=== PATIENT | female | born 1990 | race Caucasian/White ===

== ENCOUNTER 2017-05-04 07:57 | Emergency (ER) | payer OTHER ==
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
[2017-05-04] MEDS ORDERED: DIPH,PERTUS(ACELL)TETVAC-LF 0.5 ML VIAL IM ONE (08:35)
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
[2017-05-04 09:16] VITALS: BP 126/90; PULSE 85; RESP 17; TEMP 98.1
== END 2017-05-04 09:18 | disposition home or self-care (01) ==
LOC: EC 07:57
DX: S02.2XXA Fracture of nasal bones, initial encounter for closed fracture (principal); S00.12XA Contusion of left eyelid and periocular area, initial encounter; F17.200 Nicotine dependence, unspecified, uncomplicated; Z23 Encounter for immunization; Y04.0XXA Assault by unarmed brawl or fight, initial encounter; Y92.009 Unspecified place in unspecified non-institutional (private) residence as the place of occurrence of the external cause
CPT/HCPCS: 70450; 70486; 90471; 90715; 99284

== ENCOUNTER → 2017-07-28 | Outpatient (CLI) | payer OTHER ==
--- NOTE | 2017-07-28 22:40 | XR ---
EXAMINATION TYPE: XR KUB DATE OF EXAM: 07/28/2017 CLINICAL DATA: 26-year-old female with right renal calculus, pain, PHH COMPARISON: None FINDINGS: Supine imaging limited for assessment of free air. Nonobstructive bowel gas pattern. Mild stool burden. There is a 1 cm oval calculus in the right mid abdomen that could either be in the kidney or in the c ollecting system. On the left, there are at least 4 renal calculi, largest measuring 4 mm. No suspicious pelvic calcifications. IMPRESSION: Bilateral nephrolithiasis, more numerous on the left measuring up to 4 mm but largest on the right me asuring 1 cm.
== END | disposition home or self-care (01) ==
LOC: RADXRMAIN 16:04
PROVIDERS: ATTEND Urology
DX: N20.0 Calculus of kidney (principal)
CPT/HCPCS: 74018

== ENCOUNTER 2017-08-01 08:09 | Day surgery (SDC) | payer OTHER ==
[2017-07-29 08:30] VITALS: BMI 28.3
[~2017-08-01 08:09] MED LIST: Pre Op ABX Message 1 EACH MISC MISCELLANE ONE
[2017-08-01 08:26] VITALS: RESP 16; TEMP 97.7
[2017-08-01] MEDS ORDERED: ONDANSETRON 4 MG/2 ML VIAL IVP ONE (08:45)
[2017-08-01] MEDS ORDERED: LIDOCAINE 1% 20 ML VIAL (10MG/ML) FOR IV START INTRADERMA ONE (08:45)
[2017-08-01] MEDS: LACTATED RINGERS 1,000 ML IV SCH ×2 (08:46→09:42)
[2017-08-01] MEDS ORDERED: DEXAMETHASONE SOD PHOS (MDV) 100 MG/10 ML VIAL IV ONE (08:46)
[2017-08-01 08:51] LABS: HCT 41.4 % (34.0-46.0); HGB 13.7 gm/dL (11.4-16.0); MCH 30.4 pg (25.0-35.0); MCHC 33.1 g/dL (31.0-37.0); MCV 91.7 fL (80.0-100.0); Mean Platelet Volume 6.8; Platelet Count 265 k/uL (150-450); RBC 4.52 m/uL (3.80-5.40); RDW 12.3 % (11.5-15.5)
--- NOTE | 2017-08-01 09:07 | XR ---
EXAMINATION TYPE: XR KUB DATE OF EXAM: 08/01/2017 CLINICAL DATA: 26-year-old female preop surgery lithotripsy right-sided kidney stones, PHH COMPARISON: 07/28/2017 FINDINGS: Nonobstructive bowel gas pattern. Left-sided nephrolithiasis redemonstrated, largest calculus measuring 4 mm. Ovoid 9 mm calculus redemonstrated on the right. IMPRESSION: Bilateral nephrolithiasis redemonstrated, largest measuring 9 mm on the right, stable from prior.
[2017-08-01] MEDS ORDERED: PROPOFOL 10 MG/ML 20 ML VIAL IV ONE (09:46)
[2017-08-01] MEDS ORDERED: fentaNYL (PF) 50 MCG/ML 2 ML AMP ONE (09:46)
[2017-08-01] MEDS ORDERED: MIDAZOLAM 2 MG/2 ML VIAL ONE (09:46)
--- NOTE | 2017-08-01 10:26 | P.OP ---
Date of Procedure: 08/01/17 Preoperative Diagnosis: Right Renal Calculus Postoperative Diagnosis: Same Procedure(s) Performed: Right extracorporal shockwave lithotripsy (ESWL) Anesthesia: MAC Surgeon: Sebas Rodriguez Estimated Blood Loss (ml): 0 IV fluids (ml): 650 Pathology: none sent Condition: stable Disposition: PACU Indications for Procedure: I reviewed the patient's CT scan with her and explained that she has a 6 x 8 mm calculus at the right ureteropelvic junction which appears to be the cause of her recent pain. There is also a 1-2 mm nonobstructive calculus in the mid pole of the right kidney, a 4 mm calculus in the mid pole of the left kidney and a 5 mm calculus in the lower pole left kidney. Her calculi in 2012 was composed of calcium oxalate/calcium phosphate. I reviewed treatment options including observation, ESWL or ureteroscopy with lithotripsy. The patient is interested in ESWL and a KUB will be obtained to ensure that the right renal calculus is visible. If it is then ESWL will be performed under intravenous sedation by on 08/01/2017. I reviewed the procedure and risks including postoperative pain, bleeding, kidney injury and inability to completely fragment the calculus. The patient will eventually need a metabolic evaluation as she has had several stones over the last 5 years. Operative Findings: The calculus fragmented well. Description of Procedure: The patient was taken to the operating room and placed on the Dornier Compact Delta II lithotripter in the supine position. The calculus was seen on biplanar fluoroscopy. Once the patient was properly positioned and sedated, lithotripsy was performed. The energy level was gradually increased per protocol, to an energy level of 5. After 200 shocks were administered, a 2 minute pause was instituted per protocol. A total of 2000 shocks were given at a rate of 80 shocks per minute. Fluoroscopy was utilized at a minimum to ensure proper positioning and determine the treatment status. The calculus changed in appearance, consistent with fragmentation. The patient tolerated the procedure well was taken to the recovery room in stable condition. Instructions were given to strain the urine, and the patient will follow-up within one week.
[2017-08-01] MEDS ORDERED: HYDROcodone/APAP 5-325MG 1 EACH TAB PO ONE (10:49)
[2017-08-01 11:02] VITALS: BP 120/85; PULSE 84
== END 2017-08-01 11:39 | disposition home or self-care (01) ==
LOC: ORWHC2ENDO 08:09
PROVIDERS: ATTEND Urology
DX: N20.0 Calculus of kidney (principal); N39.0 Urinary tract infection, site not specified; R31.0 Gross hematuria; J45.909 Unspecified asthma, uncomplicated; Z79.891 Long term (current) use of opiate analgesic; Z79.899 Other long term (current) drug therapy
CPT/HCPCS: 81025; 82565; 85027; 74018; 50590; J2250; J2405; J3010; J1100; J2704

== ENCOUNTER 2017-12-29 15:17 | Inpatient (IN) | payer OTHER ==
[~2017-12-29 15:17] MED LIST changes: -Pre Op ABX Message 1 EACH MISC MISCELLANE ONE; +SODIUM CHLORIDE 0.9% 1,000 ML IV ONE
[2017-12-29] MEDS ORDERED: SODIUM CHLORIDE 0.9% 1,000 ML IV STA ×2 (16:19)
[2017-12-29] MEDS ORDERED: ONDANSETRON 4 MG/2 ML VIAL IVP STA (16:19)
[2017-12-29] MEDS ORDERED: KETOROLAC 30 MG/ML 1 ML VIAL IVP STA (16:19)
[2017-12-29] MEDS ORDERED: ACETAMINOPHEN TAB 500 MG TAB PO STA (16:20)
--- NOTE | 2017-12-29 16:21 | ED ---
Abdominal Pain HPI - General Source: patient, RN notes reviewed, old records reviewed Mode of arrival: ambulatory Limitations: no limitations <Rossana Carrillo - Last Filed: 12/29/17 18:52> <Macy Swift - Last Filed: 12/29/17 19:10> - General Chief Complaint: Abdominal Pain Stated Complaint: kidney stones Time Seen by Provider: 12/29/17 16:14 - History of Present Illness Initial Comments: Patient is a 27-year-old female with history of kidney stones presents emergency department today with onset of left-sided flank pain for the past 2 days. She reports that she's had fever and chills off and on. She is concerned that she may be passing another stone. She had a CAT scan of he wants , so that she had retained stones within the left kidney. Patient states that she's had a few episodes of vomiting. No evidence of diarrhea. She denies any other symptoms related to her fever. Patient states that she has had no recent Motrin or Tylenol. She rides emergency Department with fever 102. (Rossana Carrillo) - Related Data Home Medications Medication Instructions Recorded Confirmed No Known Home Medications 12/29/17 12/29/17 Allergies Allergy/AdvReac Type Severity Reaction Status Date / Time No Known Allergies Allergy Verified 12/29/17 16:25 Review of Systems ROS Other: All systems not noted in ROS Statement are negative. <Rossana Carrillo - Last Filed: 12/29/17 18:52> ROS Other: All systems not noted in ROS Statement are negative. <Macy Swift P - Last Filed: 12/29/17 19:10> ROS Statement: Those systems with pertinent positive or pertinent negative responses have been documented in the HPI. Past Medical History Past Medical History: Asthma Additional Past Medical History / Comment(s): kidney stones History of Any Multi-Drug Resistant Organisms: None Reported Past Surgical History: Cholecystectomy Additional Past Surgical History / Comment(s): lithotripsy Past Anesthesia/Blood Transfusion Reactions: No Reported Reaction Past Psychological History: No Psychological Hx Reported Smoking Status: Former smoker Past Alcohol Use History: None Reported Past Drug Use History: None Reported - Past Family History Father Family Medical History: Pulmonary Embolus <Rossana Carrillo - Last Filed: 12/29/17 18:52> General Exam Limitations: no limitations General appearance: alert, in no apparent distress Head exam: Present: atraumatic, normocephalic, normal inspection Eye exam: Present: normal appearance, PERRL, EOMI. Absent: scleral icterus, conjunctival injection, periorbital swelling ENT exam: Present: normal exam, mucous membranes moist Neck exam: Present: normal inspection. Absent: tenderness, meningismus, lymphadenopathy Respiratory exam: Present: normal lung sounds bilaterally. Absent: respiratory distress, wheezes, rales, rhonchi, stridor Cardiovascular Exam: Present: regular rate, normal rhythm, normal heart sounds. Absent: systolic murmur, diastolic murmur, rubs, gallop, clicks GI/Abdominal exam: Present: soft, tenderness (Left-sided abdominal tenderness. Left CVA tenderness.), normal bowel sounds. Absent: distended, guarding, rebound, rigid Extremities exam: Present: normal inspection, full ROM, normal capillary refill. Absent: tenderness, pedal edema, joint swelling, calf tenderness Back exam: Present: normal inspection Neurological exam: Present: alert, oriented X3, CN II-XII intact Psychiatric exam: Present: normal affect Skin exam: Present: warm, dry, intact, normal color. Absent: rash <Rossana Carrillo - Last Filed: 12/29/17 18:52> <Macy Swift P - Last Filed: 12/29/17 19:10> - General Exam Comments Initial Comments: This is a 27-year-old female. She is alert and oriented. Appears in no acute distress. (Rossana Carrillo) Vital Signs 12/29/17 12/29/17 15:23 17:41 Temperature 100.1 F H 101.6 F H Pulse Rate 122 H 97 Respiratory 18 18 Rate Blood Pressure 126/86 121/66 O2 Sat by Pulse 100 96 Oximetry Medical Decision Making - Lab Data Result diagrams: 12/29/17 16:21 12/29/17 16:21 - Radiology Data Radiology results: report reviewed <Rossana Carrillo - Last Filed: 12/29/17 18:52> - Lab Data Result diagrams: 12/29/17 16:21 12/29/17 16:21 <Macy Swift - Last Filed: 12/29/17 19:10> - Medical Decision Making 27-year-old female presents emergency department today chief complaint of dysuria fevers and chills. She denies emergency part fever 102. Patient was started on IV fluids. Discussed the plan of severe left flank pain. She's had a history of kidney since the past she does see a urologist and warm and she can. Does not remember the name. At this time Patient has evidence of leukocytosis of 14,000. Urinalysis positive for infection and many red blood cells. Concern for septic ureteral stone. Today function was within normal limits. She's had have lithotripsies in the past. Patient was started on 2 g of Rocephin 2 L bolus. Lactic acid was normal. Patient will be admitted at this time for observation to Dr. Dumont on-call urology. May proceed with a ureteral stent to remove a 7 mm stone. (Rossana Carrillo) I saw and evaluated the patient independently have the PA evaluation. Patient with left-sided flank pain, nausea, decreased by mouth intake, fever. Urinalysis reveals a urinary tract infection for which she was treated with Rocephin. Computed tomography scan reveals a 7 mm UVJ stone. I discussed the patient's care with Dr. mueller her who recommends the patient be placed in observation for intervention. (Macy Swift) - Lab Data Lab Results 12/29/17 12/29/17 12/29/17 Range/Units 16:21 16:21 16:21 WBC 14.3 H (3.8-10.6) k/uL RBC 4.76 (3.80-5.40) m/uL Hgb 14.5 (11.4-16.0) gm/dL Hct 42.5 (34.0-46.0) % MCV 89.3 (80.0-100.0) fL MCH 30.5 (25.0-35.0) pg MCHC 34.1 (31.0-37.0) g/dL RDW 12.9 (11.5-15.5) % Plt Count 239 (150-450) k/uL Neutrophils % 83 % Lymphocytes % 8 % Monocytes % 6 % Eosinophils % 1 % Basophils % 0 % Neutrophils # 11.9 H (1.3-7.7) k/uL Lymphocytes # 1.1 (1.0-4.8) k/uL Monocytes # 0.9 (0-1.0) k/uL Eosinophils # 0.2 (0-0.7) k/uL Basophils # 0.0 (0-0.2) k/uL Sodium 138 (137-145) mmol/L Potassium 4.2 (3.5-5.1) mmol/L Chloride 104 (98-107) mmol/L Carbon Dioxide 24 (22-30) mmol/L Anion Gap 10 mmol/L BUN 12 (7-17) mg/dL Creatinine 0.80 (0.52-1.04) mg/dL Est GFR (CKD-EPI)AfAm >90 (>60 ml/min/1.73 sqM) Est GFR (CKD-EPI)NonAf >90 (>60 ml/min/1.73 sqM) Glucose 103 H (74-99) mg/dL Plasma Lactic Acid Chris 0.9 (0.7-2.0) mmol/L Calcium 9.2 (8.4-10.2) mg/dL Total Bilirubin 0.7 (0.2-1.3) mg/dL AST 20 (14-36) U/L ALT 29 (9-52) U/L Alkaline Phosphatase 87 (38-126) U/L Total Protein 7.5 (6.3-8.2) g/dL Albumin 4.5 (3.5-5.0) g/dL Amylase 47 (30-110) U/L Lipase 43 (23-300) U/L Urine Color Urine Appearance (Clear) Urine pH (5.0-8.0) Ur Specific [place] (1.001-1.035) Urine Protein (Negative) Urine Glucose (UA) (Negative) Urine Ketones (Negative) Urine Blood (Negative) Urine Nitrite (Negative) Urine Bilirubin (Negative) Urine Urobilinogen (<2.0) mg/dL Ur Leukocyte Esterase (Negative) Urine RBC (0-5) /hpf Urine WBC (0-5) /hpf Ur Squamous Epith Cells (0-4) /hpf Urine Mucus (None) /hpf Urine HCG, Qual (Not Detectd) 12/29/17 12/29/17 Range/Units 16:21 16:21 WBC (3.8-10.6) k/uL RBC (3.80-5.40) m/uL Hgb (11.4-16.0) gm/dL Hct (34.0-46.0) % MCV (80.0-100.0) fL MCH (25.0-35.0) pg MCHC (31.0-37.0) g/dL RDW (11.5-15.5) % Plt Count (150-450) k/uL Neutrophils % % Lymphocytes % % Monocytes % % Eosinophils % % Basophils % % Neutrophils # (1.3-7.7) k/uL Lymphocytes # (1.0-4.8) k/uL Monocytes # (0-1.0) k/uL Eosinophils # (0-0.7) k/uL Basophils # (0-0.2) k/uL Sodium (137-145) mmol/L Potassium (3.5-5.1) mmol/L Chloride (98-107) mmol/L Carbon Dioxide (22-30) mmol/L Anion Gap mmol/L BUN (7-17) mg/dL Creatinine (0.52-1.04) mg/dL Est GFR (CKD-EPI)AfAm (>60 ml/min/1.73 sqM) Est GFR (CKD-EPI)NonAf (>60 ml/min/1.73 sqM) Glucose (74-99) mg/dL Plasma Lactic Acid Chris (0.7-2.0) mmol/L Calcium (8.4-10.2) mg/dL Total Bilirubin (0.2-1.3) mg/dL AST (14-36) U/L ALT (9-52) U/L Alkaline Phosphatase (38-126) U/L Total Protein (6.3-8.2) g/dL Albumin (3.5-5.0) g/dL Amylase (30-110) U/L Lipase (23-300) U/L Urine Color Yellow Urine Appearance Cloudy H (Clear) Urine pH 6.0 (5.0-8.0) Ur Specific [place] 1.018 (1.001-1.035) Urine Protein 1+ H (Negative) Urine Glucose (UA) Negative (Negative) Urine Ketones 1+ H (Negative) Urine Blood Moderate H (Negative) Urine Nitrite Negative (Negative) Urine Bilirubin Negative (Negative) Urine Urobilinogen 2.0 (<2.0) mg/dL Ur Leukocyte Esterase Small H (Negative) Urine RBC 53 H (0-5) /hpf Urine WBC 16 H (0-5) /hpf Ur Squamous Epith Cells 7 H (0-4) /hpf Urine Mucus Many H (None) /hpf Urine HCG, Qual Not Detected (Not Detectd) - Radiology Data Starting calculus at the left ureteropelvic junction. Multiple renal colliculi. Left-sided hydronephrosis. 7 mm Dose of the proximal left ureter. ( Rossana Carrillo) Disposition Is patient prescribed a controlled substance at d/c from ED?: No When asked, does pt state using other controlled substances?: No If prescribed controlled substance>3 days was MAPS reviewed?: No If opioid is for acute pain is fill amount 7 days or less?: No If Rx opioid, was Start Talking consent form obtained?: No Time of Disposition: 18:52 <Rossana Carrillo - Last Filed: 12/29/17 18:52> <Macy Swift - Last Filed: 12/29/17 19:10> Clinical Impression: Sepsis, Ureteral stone Disposition: HOME SELF-CARE Condition: Good Referrals: Fausto Ann DO [Primary Care Provider] - 1-2 days
[2017-12-29 16:36] LABS: Basophils % (A) 0 %; Eosinophils # (A) 0.2 k/uL (0-0.7); Eosinophils % (A) 1 %; HCT 42.5 % (34.0-46.0); HGB 14.5 gm/dL (11.4-16.0); Lymphocytes # (A) 1.1 k/uL (1.0-4.8); Lymphocytes % (A) 8 %; MCH 30.5 pg (25.0-35.0); MCHC 34.1 g/dL (31.0-37.0); MCV 89.3 fL (80.0-100.0); Mean Platelet Volume 6.8; Monocytes # (A) 0.9 k/uL (0-1.0); Monocytes % (A) 6 %; Neutrophils # (A) 11.9 k/uL (1.3-7.7); Neutrophils % (A) 83 %; Platelet Count 239 k/uL (150-450); RBC 4.76 m/uL (3.80-5.40); RDW 12.9 % (11.5-15.5); WBC 14.3 k/uL (3.8-10.6)
[2017-12-29] MEDS ORDERED: cefTRIAXone IN SWFI 1,000 MG/10 ML SYRINGE IVP STA (16:40)
[2017-12-29] MEDS ORDERED: cefTRIAXone IN SWFI 2,000 MG/20 ML SYRINGE IVP ONE (16:45)
[2017-12-29 16:47] LABS: ALT 29 U/L (9-52); AST 20 U/L (14-36); Albumin 4.5 g/dL (3.5-5.0); Alkaline Phosphatase 87 U/L (38-126); Amylase 47 U/L (30-110); Anion Gap 10 mmol/L; Blood Urea Nitrogen 12 mg/dL (7-17); Calcium 9.2 mg/dL (8.4-10.2); Carbon Dioxide 24 mmol/L (22-30); Chloride 104 mmol/L (98-107); Glucose 103 mg/dL (74-99); Lipase 43 U/L (23-300); Potassium 4.2 mmol/L (3.5-5.1); Sodium 138 mmol/L (137-145); Total Bilirubin 0.7 mg/dL (0.2-1.3); Total Protein 7.5 g/dL (6.3-8.2)
[2017-12-29 17:09] LABS: Appearance,Urine Cloudy (Clear); Bilirubin,Urine Negative (Negative); Blood,Urine Moderate (Negative); Color,Urine Yellow; Glucose,Urine (UA) Negative (Negative); Ketones,Urine 1+ (Negative); Leukocyte Esterase,Urine Small (Negative); Mucus,Urine Many /hpf; Nitrite,Urine Negative (Negative); Protein,Urine 1+ (Negative); RBC,Urine 53 /hpf (0-5); Specific Gravity,Urine 1.018 (1.001-1.035); Squamous Epithelial Cell,Urine 7 /hpf (0-4); WBC,Urine 16 /hpf (0-5)
--- NOTE | 2017-12-29 18:18 | CT ---
EXAMINATION TYPE: CT abdomen pelvis wo con DATE OF EXAM: 12/29/2017 COMPARISON: None HISTORY: lt flank pain/hx bilat kid stones CT DLP: 456.7 mGycm Automated exposure control for dose reduction was used. TECHNIQUE: Helical acquisition of images was performed from the lung bases through the pelvis. FINDINGS: Lung bases are clear. There is no pleural effusion. There is no pericardial effusion. There are clips from cholecystectomy. Liver spleen pancreas appear normal. Bile ducts are not dilated . There is left-sided hydronephrosis and perinephric edema. There is 7 mm calculus in the proximal left ureter. There is a 2 mm right renal calculus. There are several calculi in the left kidney. There is no retroperitoneal adenopathy. There is no intestinal wall thickening. There are no dilated loops. Bladder distends smoothly. There is no pelvic mass. Uterus is anteverted. The bony structures appear intact. Appendix appears normal.. IMPRESSION: OBSTRUCTING CALCULUS AT THE LEFT URETEROPELVIC JUNCTION. MULTIPLE RENAL CALCULI. MODERATE LEFT-SIDED HYDRONEPHROSIS.
[2017-12-29] MEDS ORDERED: IBUPROFEN 600 MG TAB PO STA (18:26)
[2017-12-29] MEDS ORDERED: ONDANSETRON 4 MG/2 ML VIAL IVP PRN (18:53)
[2017-12-29] MEDS ORDERED: MORPHINE SULFATE 4 MG/ML SYRINGE IV PRN (18:53)
[2017-12-29] MEDS ORDERED: NALOXONE 0.4 MG/ML 1 ML VIAL IV PRN (18:53)
[2017-12-29] MEDS ORDERED: ACETAMINOPHEN TAB 325 MG TAB PO PRN (19:36)
--- NOTE | 2017-12-29 20:16 | P.GSHP ---
History of Present Illness H&P Date: 12/29/17 Chief Complaint: Left hydronephrosis and febrile urinary tract infection The patient is a 27-year-old female admitted through the emergency room for treatment of a febrile urinary tract infection complicated by an obstructive calculus in the proximal left ureter. The patient said she first developed left flank pain yesterday evening. The pain was described as a 7 out of 10 and was partially relieved with ibuprofen. Today she developed chills and her pain increased to a 10 out of 10. She came to the emergency room where she was evaluated and noted to have a temperature of 101.4. White blood count was 14, 300. Lactic acid was 0.9. BUN/creatinine were 12/0.8. Urinalysis suggested a urinary tract infection. The patient was given 2 g of ceftriaxone. Noncontrast computed tomography scan of the abdomen and pelvis identified moderate left hydronephrosis secondary to a 6.6 x 4.8 mm calculus in the proximal left ureter. A punctate nonobstructive calculus was noted in the upper pole the right kidney. A punctate calculus was noted in the upper pole the left kidney. 2 nonobstructive calculi measuring less than 3 mm in diameter were noted in the mid and lower pole of the left kidney. The patient has been treated with analgesics and her pain has decreased to a 6 out of 10. She continues to have a fever over 101. The patient has no definite history of urinary tract infection. She does have a history of urolithiasis and underwent placement of a double-J catheter and ESWL treatment of a ureteral calculus approximally 5 years ago. Approximate 6 months ago a calculus in the right ureter was treated with ESWL. At that time she was told she had 2 calculi in the left kidney. She is uncertain as to the composition of the calculi and has never had an evaluation for this. Her family history significant in that her mother is had stones. The patient has had no recent gross hematuria or dysuria. She has noted increased urinary frequency for the last 3 days. She says she usually voids every 2-3 hours during the day and is currently voiding every hour. - Constitutional Constitutional: Reports chills, Reports fever - Cardiovascular Cardiovascular: Denies high blood pressure, Denies palpitations, Denies shortness of breath - Respiratory Respiratory: Reports cough, Denies pain on inspiration, Denies wheezing - Gastrointestinal Gastrointestinal: Reports as per HPI, Denies constipation, Denies heartburn - Genitourinary (Female) Genitourinary: Reports as per HPI Past Medical History Past Medical History: Asthma Additional Past Medical History / Comment(s): kidney stones History of Any Multi-Drug Resistant Organisms: None Reported Past Surgical History: Cholecystectomy Additional Past Surgical History / Comment(s): Extracorporal shock wave lithotripsy twice Past Anesthesia/Blood Transfusion Reactions: No Reported Reaction Past Psychological History: No Psychological Hx Reported Smoking Status: Former smoker Past Alcohol Use History: None Reported Past Drug Use History: None Reported - Past Family History Father Family Medical History: Pulmonary Embolus Medications and Allergies Home Medications Medication Instructions Recorded Confirmed Type No Known Home Medications 12/29/17 12/29/17 History Allergies Allergy/AdvReac Type Severity Reaction Status Date / Time No Known Allergies Allergy Verified 12/29/17 16:25 Surgical - Exam Vital Signs Temp Pulse Resp BP Pulse Ox 100.1 F H 122 H 18 126/86 100 12/29/17 15:23 12/29/17 15:23 12/29/17 15:23 12/29/17 15:23 12/29/17 15:23 - General well developed, well nourished, moderate distress, obese - ENT no hearing loss - Neck no masses, no lymphadectomy - Respiratory normal respiratory effort, clear to auscultation - Cardiovascular Rhythm: regular Heart Sounds: normal: S1, S2 Abnormal Heart Sounds: no systolic murmur, no diastolic murmur - Abdomen Abdomen: tender (left upper quadrant and left flank) Results - Labs 12/29/17 16:21 12/29/17 16:21 Abnormal Lab Results - Last 24 Hours (Table) 12/29/17 12/29/17 12/29/17 Range/Units 16:21 16:21 16:21 WBC 14.3 H (3.8-10.6) k/uL Neutrophils # 11.9 H (1.3-7.7) k/uL Glucose 103 H (74-99) mg/dL Urine Appearance Cloudy H (Clear) Urine Protein 1+ H (Negative) Urine Ketones 1+ H (Negative) Urine Blood Moderate H (Negative) Ur Leukocyte Esterase Small H (Negative) Urine RBC 53 H (0-5) /hpf Urine WBC 16 H (0-5) /hpf Ur Squamous Epith Cells 7 H (0-4) /hpf Urine Mucus Many H (None) /hpf Diabetes panel 12/29/17 Range/Units 16:21 Sodium 138 (137-145) mmol/L Potassium 4.2 (3.5-5.1) mmol/L Chloride 104 (98-107) mmol/L Carbon Dioxide 24 (22-30) mmol/L BUN 12 (7-17) mg/dL Creatinine 0.80 (0.52-1.04) mg/dL Glucose 103 H (74-99) mg/dL Calcium 9.2 (8.4-10.2) mg/dL AST 20 (14-36) U/L ALT 29 (9-52) U/L Alkaline Phosphatase 87 (38-126) U/L Total Protein 7.5 (6.3-8.2) g/dL Albumin 4.5 (3.5-5.0) g/dL Calcium panel 12/29/17 Range/Units 16:21 Calcium 9.2 (8.4-10.2) mg/dL Albumin 4.5 (3.5-5.0) g/dL Pituitary panel 12/29/17 Range/Units 16:21 Sodium 138 (137-145) mmol/L Potassium 4.2 (3.5-5.1) mmol/L Chloride 104 (98-107) mmol/L Carbon Dioxide 24 (22-30) mmol/L BUN 12 (7-17) mg/dL Creatinine 0.80 (0.52-1.04) mg/dL Glucose 103 H (74-99) mg/dL Calcium 9.2 (8.4-10.2) mg/dL Adrenal panel 12/29/17 Range/Units 16:21 Sodium 138 (137-145) mmol/L Potassium 4.2 (3.5-5.1) mmol/L Chloride 104 (98-107) mmol/L Carbon Dioxide 24 (22-30) mmol/L BUN 12 (7-17) mg/dL Creatinine 0.80 (0.52-1.04) mg/dL Glucose 103 H (74-99) mg/dL Calcium 9.2 (8.4-10.2) mg/dL Total Bilirubin 0.7 (0.2-1.3) mg/dL AST 20 (14-36) U/L ALT 29 (9-52) U/L Alkaline Phosphatase 87 (38-126) U/L Total Protein 7.5 (6.3-8.2) g/dL Albumin 4.5 (3.5-5.0) g/dL Assessment and Plan (1) Sepsis Narrative/Plan: The patient appears to have sepsis secondary to urinary tract infection which is complicated by an obstructive calculus in the proximal left ureter. I discussed cystoscopy with placement of a left double-J catheter to decompress the left kidney and allow better antibiotic penetration into the kidney. This will be performed later this evening. The patient is aware that the ureteral calculus will require treatment at some time in the future once the infection has been cleared. Current Visit: Yes Status: Acute Code(s): A41.9 - SEPSIS, UNSPECIFIED ORGANISM SNOMED Code(s): 10648703
[2017-12-29] MEDS ORDERED: ONDANSETRON 4 MG/2 ML VIAL ONE (20:41)
[2017-12-29] MEDS ORDERED: LIDOCAINE 1% INJ 10MG/ML (20 ML MDV) ONE (20:41)
[2017-12-29] MEDS ORDERED: PROPOFOL 10 MG/ML 20 ML VIAL IV ONE (20:41)
[2017-12-29] MEDS ORDERED: MIDAZOLAM 2 MG/2 ML VIAL ONE (20:41)
[2017-12-29] MEDS ORDERED: fentaNYL (PF) 50 MCG/ML 2 ML AMP ONE (20:41)
[2017-12-29] MEDS ORDERED: LACTATED RINGERS 1,000 ML IV ONE (21:04)
--- NOTE | 2017-12-29 21:18 | P.OP ---
Date of Procedure: 12/29/17 Preoperative Diagnosis: Urinary tract infection with sepsis complicated by obstructive proximal left ureteral calculus Postoperative Diagnosis: Urinary tract infection with sepsis complicated by obstructive proximal left ureteral calculus Procedure(s) Performed: Cystoscopy with collection of urine from left renal pelvis and placement of 6- Nigerien by 24 cm left double-J catheter Anesthesia: [facility] Surgeon: Akbar Khan Estimated Blood Loss (ml): 0 Condition: stable Disposition: PACU Indications for Procedure: The patient is a 27-year-old female developed left flank pain and a fever of 101.4 over the last 24 hours. Urinalysis shows evidence of urinary tract infection and a computed tomography scan of the abdomen and pelvis identified a 5 x 7 mm calculus in the proximal left ureter which has caused hydronephrosis. The patient has been admitted for IV antibiotic therapy. Cystoscopy with placement of a left double-J catheter is planned to ensure adequate drainage of the kidney. Description of Procedure: The patient was taken the operating suite where adequate intravenous sedation was given. She was placed in the dorsal lithotomy position with her legs suspended from padded Jose Angel stirrups. The perineum was prepped with Betadine solution and draped in a sterile fashion. The external genitalia and urethral meatus were unremarkable. The 22-Nigerien cystoscope sheath with obturator was passed through the urethra and into the bladder. The bladder was examined using the 30 lens. Both ureteral orifices were of normal location and configuration. The bladder was free of tumor, foreign body and diverticulum. A 0.035 straight Glidewire was advanced through the left ureteral orifice and using fluoroscopy the Glidewire was advanced beyond the calculus in the proximal ureter and into the renal pelvis. An open-ended 6-Nigerien ureteral catheter was advanced over the Glidewire but it was impossible to advance the ureteral catheter beyond the calculus. The 0.035 Glidewire was replaced with a 0.038 Glidewire and using the stiffer Glidewire it was eventually possible to advance the 6-Nigerien open-ended catheter beyond the calculus and into the renal pelvis. 4 mL of cloudy urine was aspirated from the renal pelvis and submitted for culture. The open-ended ureteral catheter was removed leaving the Glidewire in place. A 6-Nigerien by 24 cm double-J catheter was then advanced over the Glidewire and positioned so that the proximal end coiled in the region of the renal pelvis and the distal and coiled in the bladder. The bladder was drained and the cystoscope was withdrawn. The patient tolerated procedure well and left the operative room awake and in satisfactory condition. The patient will be treated with antibiotics and elective treatment of the calculus will be set up in several weeks.
[2017-12-30] MEDS ORDERED: KETOROLAC 30 MG/ML 1 ML VIAL ONE (00:10)
--- NOTE | 2017-12-30 07:17 | FL ---
EXAMINATION TYPE: FL guidance operating room DATE OF EXAM: 12/29/2017 CLINICAL HISTORY: Obstructing left ureter calculus TECHNIQUE: Fluoroscopy. COMPARISON: CT abdomen and pelvis earlier today. FINDINGS: Fluoroscopic guidance was provided during retrograde cystogram with left ureter stent inse rtion procedure performed by Dr. Khan. A total of 26 seconds of fluoroscopic time was utilized duri ng the procedure and one spot intraoperative fluoroscopic image is acquired. Single image acquired sh ows proximal portion of ureter stone into collecting system. IMPRESSION: As Above.
[2017-12-30] MEDS: SODIUM CHLORIDE 0.9% 1,000 ML IV SCH ×3 (07:29→13:05)
[2017-12-30] MEDS: PANTOPRAZOLE 40 MG/10 ML VIAL IV SCH (07:53)
[2017-12-30] MEDS: KETOROLAC 30 MG/ML 1 ML VIAL IVP PRN ×3 (07:58→20:00)
--- NOTE | 2017-12-30 16:58 | P.PN ---
Progress Note - Text Progress Note Date: 12/30/17 The patient has been afebrile and says that her left flank pain is greatly diminished following placement of the double-J catheter. Her appetite is improved. She has also noted reduced urinary frequency and urgency. She will be continued on her current antibiotics pending results of her urine culture.
[2017-12-30] MEDS: cefTRIAXone IN SWFI 1,000 MG/10 ML SYRINGE IVP SCH (17:48)
[2017-12-31] MEDS: SODIUM CHLORIDE 0.9% 1,000 ML IV SCH ×2 (00:32→03:39)
[2017-12-31] MEDS: KETOROLAC 30 MG/ML 1 ML VIAL IVP PRN (03:04)
[2017-12-31 07:00] VITALS: BP 108/69; PULSE 76; RESP 16; TEMP 98.2
[2017-12-31] MEDS: cefTRIAXone IN SWFI 1,000 MG/10 ML SYRINGE IVP SCH (07:50)
[2017-12-31] MEDS: PANTOPRAZOLE 40 MG/10 ML VIAL IV SCH (07:50)
--- NOTE | 2017-12-31 09:41 | P.DS ---
Providers Date of admission: 12/31/17 07:56 Expected date of discharge: 12/31/17 Attending physician: Akbar Khan Primary care physician: Fausto Ann - Discharge Diagnosis(es) (1) Sepsis Current Visit: Yes Status: Acute Hospital Course: The patient was admitted on 12/29/2017 with severe left flank pain and a temperature of 101.4. Computed tomography scan identified an obstructive calculus in the proximal left ureter and the patient's urinalysis suggested a urinary tract infection. She was presumed to have sepsis secondary to left pyelonephritis complicated by an obstructive left ureteral calculus. She underwent urgent placement of a left double-J catheter later in the day. Her pain resolved and her fever resolved within 12 hours of placement of the double- J catheter. She was started on ceftriaxone pending results of blood and urine cultures. Her blood culture and culture from the voided urine showed no growth. A culture obtained from the left renal pelvis was pending at the time of discharge. The patient was given a dose of ceftriaxone prior to discharge and will be contacted on 12/02 once the culture from the left renal pelvis is finalized. Elective treatment of the left ureteral calculus will be set up in 2 -3 weeks. Procedures: Cystoscopy with placement of left double-J catheter 11/29/2017 Plan - Discharge Summary New Discharge Prescriptions: No Action No Known Home Medications Discharge Medication List No Known Home Medications 12/29/17 [History] Follow up Appointment(s)/Referral(s): Akbar Khan MD [STAFF PHYSICIAN] - 3 Weeks Fausto Ann DO [Primary Care Provider] - As Needed Patient Instructions/Handouts: Cystoscopy (DC), Ureteral Stent Placement (DC) Activity/Diet/Wound Care/Special Instructions: Regular diet. Activity as tolerated. Discharge Disposition: HOME SELF-CARE Pending Studies Pending Results: Urine culture from left renal pelvis
== END 2017-12-31 10:18 | disposition home or self-care (01) | DRG 872 ==
LOC: EC 15:17 → 4MS4W 18:55 → OBSVTOIN 12-31 07:56
PROVIDERS: ADMIT Urology; ATTEND Urology
PROC: BT1F1ZZ Fluoroscopy of Left Kidney, Ureter and Bladder using Low Osmolar Contrast (ICD-10-PCS; 2017-12-29)
PROC: 0T778DZ Dilation of Left Ureter with Intraluminal Device, Via Natural or Artificial Opening Endoscopic (ICD-10-PCS; principal; 2017-12-29 20:30)
DX: A41.9 Sepsis, unspecified organism (principal); N13.6 Pyonephrosis; N20.1 Calculus of ureter; Z87.442 Personal history of urinary calculi; Z87.891 Personal history of nicotine dependence; J45.909 Unspecified asthma, uncomplicated; Z83.2 Family history of diseases of the blood and blood-forming organs and certain disorders involving the immune mechanism
CPT/HCPCS: 36415; 74176; 80053; 81001; 81025; 82150; 83605; 83690; 85025; 87040; 87086; 96361; 96374; 96375; 99285

== ENCOUNTER 2018-05-27 16:45 | Emergency (ER) | payer OTHER ==
[2018-05-27 16:50] VITALS: RESP 16
[2018-05-27] MEDS ORDERED: SODIUM CHLORIDE 0.9% 1,000 ML IV ONE (17:21)
--- NOTE | 2018-05-27 17:48 | ED ---
Female Urogenital HPI - General Chief complaint: Vaginal Bleeding Stated complaint: vaginal bleeding/approx 10 wks preg Time Seen by Provider: 05/27/18 17:02 Source: patient Mode of arrival: ambulatory Limitations: no limitations - History of Present Illness Initial comments: 27-year-old female patient presents to the emergency department today with complaints of vaginal bleeding. Patient states she is approximately 10 weeks , last period was 03/14/2018. Patient is , with one miscarriage. Patient states that yesterday she started to notice bright red blood on the toilet paper with wiping. Patient states she is spotting today. Has not had wear a pad. She denies any passage of clots. She denies any abdominal pain or cramping. States she is having some mild low back pain. She denies any hematuria, dysuria, urinary frequency, urinary urgency. She denies any abnormal vaginal discharge prior to onset of bleeding. She denies any history of clotting disorders or use of anticoagulant or antiplatelet medications. Patient denies any recent rash, fever, chills, shortness breath, chest pain, nausea, vomiting, diarrhea, constipation, numbness, tingling, dizziness, weakness, headache, visual changes, or any other complaints. - Related Data Home Medications Medication Instructions Recorded Confirmed No Known Home Medications 12/29/17 05/27/18 Allergies Allergy/AdvReac Type Severity Reaction Status Date / Time No Known Allergies Allergy Verified 05/27/18 16:50 Review of Systems ROS Statement: Those systems with pertinent positive or pertinent negative responses have been documented in the HPI. ROS Other: All systems not noted in ROS Statement are negative. Past Medical History Past Medical History: Asthma Additional Past Medical History / Comment(s): kidney stones History of Any Multi-Drug Resistant Organisms: None Reported Past Surgical History: Cholecystectomy Additional Past Surgical History / Comment(s): Extracorporal shock wave lithotripsy twice Past Anesthesia/Blood Transfusion Reactions: No Reported Reaction Past Psychological History: No Psychological Hx Reported Smoking Status: Former smoker Past Alcohol Use History: None Reported Past Drug Use History: None Reported - Past Family History Father Family Medical History: Pulmonary Embolus General Exam Limitations: no limitations General appearance: alert, in no apparent distress, other (This is a well- developed, well-nourished adult female patient in no acute distress. Vital signs upon presentation are temperature 98.2F, pulse 80, respirations 16, blood pressure 120/85, pulse ox 98% on room air.) Eye exam: Present: normal appearance, PERRL, EOMI. Absent: scleral icterus, conjunctival injection, periorbital swelling ENT exam: Present: normal exam, normal oropharynx, mucous membranes moist Respiratory exam: Present: normal lung sounds bilaterally. Absent: respiratory distress, wheezes, rales, rhonchi, stridor Cardiovascular Exam: Present: regular rate, normal rhythm, normal heart sounds. Absent: systolic murmur, diastolic murmur, rubs, gallop, clicks GI/Abdominal exam: Present: soft, normal bowel sounds. Absent: distended, tenderness, guarding, rebound, rigid External exam: Present: normal external exam Speculum exam: Present: vaginal bleeding (Small amount of bright red vaginal bleeding from the cervical os), other (Cervical os is closed). Absent: erythema , tissue, laceration By manual exam: Present: normal by manual exam Neurological exam: Present: alert, oriented X3, CN II-XII intact Psychiatric exam: Present: normal affect, normal mood Skin exam: Present: warm, dry, intact, normal color. Absent: rash Course Vital Signs 05/27/18 05/27/18 05/27/18 16:46 19:12 20:18 Temperature 98.2 F 97.7 F Pulse Rate 80 87 81 Respiratory 16 16 16 Rate Blood Pressure 120/85 113/87 111/76 O2 Sat by Pulse 98 100 99 Oximetry 05/27/18 20:38 Temperature 98.0 F Pulse Rate 83 Respiratory 16 Rate Blood Pressure 103/81 O2 Sat by Pulse 100 Oximetry Medical Decision Making - Medical Decision Making 27-year-old female patient presents the emergency department today for complaints of vaginal spotting. She did report being approximately 10 weeks with last menstrual. At 03/14/2018. Labs reviewed and did reveal elevated hCG at 20,200. ABO Rh is A+. Ultrasound showed intrauterine gestational sac measuring approximate 5 weeks 2 days. No cardiac activity at this time. Pelvic examination did reveal a small amount of dark red bleeding from the cervical os, cervical os was closed. Did discuss the case with Dr. Soriano from [facility] [employer], he is instructed to have patient call Tuesday morning for an appointment. Did discuss findings and results with the patient. We did discuss early versus threatened . She is instructed to return immediately should her symptoms change or worsen. Return parameters discussed in detail. She verbalizes understanding and agrees with this plan. - Lab Data Result diagrams: 05/27/18 17:39 05/27/18 17:39 Lab Results 05/27/18 05/27/18 05/27/18 Range/Units 17:37 17:39 17:39 WBC 8.7 (3.8-10.6) k/uL RBC 4.79 (3.80-5.40) m/uL Hgb 14.1 (11.4-16.0) gm/dL Hct 43.5 (34.0-46.0) % MCV 91.0 (80.0-100.0) fL MCH 29.5 (25.0-35.0) pg MCHC 32.4 (31.0-37.0) g/dL RDW 12.8 (11.5-15.5) % Plt Count 259 (150-450) k/uL Neutrophils % 72 % Lymphocytes % 20 % Monocytes % 6 % Eosinophils % 1 % Basophils % 0 % Neutrophils # 6.2 (1.3-7.7) k/uL Lymphocytes # 1.7 (1.0-4.8) k/uL Monocytes # 0.5 (0-1.0) k/uL Eosinophils # 0.1 (0-0.7) k/uL Basophils # 0.0 (0-0.2) k/uL PT (9.0-12.0) sec INR (<1.2) APTT (22.0-30.0) sec Sodium (137-145) mmol/L Potassium (3.5-5.1) mmol/L Chloride (98-107) mmol/L Carbon Dioxide (22-30) mmol/L Anion Gap mmol/L BUN (7-17) mg/dL Creatinine (0.52-1.04) mg/dL Est GFR (CKD-EPI)AfAm (>60 ml/min/1.73 sqM) Est GFR (CKD-EPI)NonAf (>60 ml/min/1.73 sqM) Glucose (74-99) mg/dL Calcium (8.4-10.2) mg/dL Total Bilirubin (0.2-1.3) mg/dL AST (14-36) U/L ALT (9-52) U/L Alkaline Phosphatase (38-126) U/L Total Protein (6.3-8.2) g/dL Albumin (3.5-5.0) g/dL HCG, Quant mIU/mL Urine Color Urine Appearance (Clear) Urine pH (5.0-8.0) Ur Specific [place] (1.001-1.035) Urine Protein (Negative) Urine Glucose (UA) (Negative) Urine Ketones (Negative) Urine Blood (Negative) Urine Nitrite (Negative) Urine Bilirubin (Negative) Urine Urobilinogen (<2.0) mg/dL Ur Leukocyte Esterase (Negative) Urine RBC (0-5) /hpf Urine WBC (0-5) /hpf Ur Squamous Epith Cells (0-4) /hpf Urine Mucus (None) /hpf Blood Type A Positive Blood Type Confirm A Positive Blood Type Recheck CABO Indicated 05/27/18 05/27/18 05/27/18 Range/Units 17:39 17:39 17:39 WBC (3.8-10.6) k/uL RBC (3.80-5.40) m/uL Hgb (11.4-16.0) gm/dL Hct (34.0-46.0) % MCV (80.0-100.0) fL MCH (25.0-35.0) pg MCHC (31.0-37.0) g/dL RDW (11.5-15.5) % Plt Count (150-450) k/uL Neutrophils % % Lymphocytes % % Monocytes % % Eosinophils % % Basophils % % Neutrophils # (1.3-7.7) k/uL Lymphocytes # (1.0-4.8) k/uL Monocytes # (0-1.0) k/uL Eosinophils # (0-0.7) k/uL Basophils # (0-0.2) k/uL PT 9.9 (9.0-12.0) sec INR 0.9 (<1.2) APTT 25.5 (22.0-30.0) sec Sodium 138 (137-145) mmol/L Potassium 3.9 (3.5-5.1) mmol/L Chloride 105 (98-107) mmol/L Carbon Dioxide 23 (22-30) mmol/L Anion Gap 10 mmol/L BUN 11 (7-17) mg/dL Creatinine 0.59 (0.52-1.04) mg/dL Est GFR (CKD-EPI)AfAm >90 (>60 ml/min/1.73 sqM) Est GFR (CKD-EPI)NonAf >90 (>60 ml/min/1.73 sqM) Glucose 79 (74-99) mg/dL Calcium 9.2 (8.4-10.2) mg/dL Total Bilirubin 0.5 (0.2-1.3) mg/dL AST 33 (14-36) U/L ALT 44 (9-52) U/L Alkaline Phosphatase 86 (38-126) U/L Total Protein 7.8 (6.3-8.2) g/dL Albumin 4.6 (3.5-5.0) g/dL HCG, Quant 49605.3 mIU/mL Urine Color Yellow Urine Appearance Cloudy H (Clear) Urine pH 6.0 (5.0-8.0) Ur Specific [place] 1.022 (1.001-1.035) Urine Protein Trace H (Negative) Urine Glucose (UA) Negative (Negative) Urine Ketones Negative (Negative) Urine Blood Small H (Negative) Urine Nitrite Negative (Negative) Urine Bilirubin Negative (Negative) Urine Urobilinogen <2.0 (<2.0) mg/dL Ur Leukocyte Esterase Negative (Negative) Urine RBC 7 H (0-5) /hpf Urine WBC 5 (0-5) /hpf Ur Squamous Epith Cells 10 H (0-4) /hpf Urine Mucus Moderate H (None) /hpf Blood Type Blood Type Confirm Blood Type Recheck - Radiology Data Radiology results: report reviewed Obstetrical ultrasound was obtained. Report was reviewed in its entirety. Impression by Dr. Ko shows small intrauterine gestational sac corresponds to 5 weeks 2 days gestation. Follow-up exam is recommended in 14 days to confirm a living fetus. Disposition Clinical Impression: Vaginal bleeding in , Threatened Disposition: HOME SELF-CARE Condition: Good Instructions: Threatened Miscarriage (ED), First Trimester Vaginal Bleed (ED) Additional Instructions: Call the learning specialist office on Tuesday for an appointment. Return to the emergency department immediately for any new, worsening, or concerning symptoms. Is patient prescribed a controlled substance at d/c from ED?: No Referrals: Fausto Ann DO [Primary Care Provider] - 1-2 days Wes Soriano MD [STAFF PHYSICIAN] - 1-2 days Time of Disposition: 20:34
[2018-05-27 18:00] LABS: Basophils % (A) 0 %; Eosinophils # (A) 0.1 k/uL (0-0.7); Eosinophils % (A) 1 %; HCT 43.5 % (34.0-46.0); HGB 14.1 gm/dL (11.4-16.0); Lymphocytes # (A) 1.7 k/uL (1.0-4.8); Lymphocytes % (A) 20 %; MCH 29.5 pg (25.0-35.0); MCHC 32.4 g/dL (31.0-37.0); Monocytes # (A) 0.5 k/uL (0-1.0); Monocytes % (A) 6 %; Neutrophils # (A) 6.2 k/uL (1.3-7.7); Neutrophils % (A) 72 %; Platelet Count 259 k/uL (150-450); RBC 4.79 m/uL (3.80-5.40); RDW 12.8 % (11.5-15.5); WBC 8.7 k/uL (3.8-10.6)
[2018-05-27 18:05] LABS: Appearance,Urine Cloudy (Clear); Bilirubin,Urine Negative (Negative); Blood,Urine Small (Negative); Color,Urine Yellow; Glucose,Urine (UA) Negative (Negative); Ketones,Urine Negative (Negative); Leukocyte Esterase,Urine Negative (Negative); Mucus,Urine Moderate /hpf; Nitrite,Urine Negative (Negative); Protein,Urine Trace (Negative); RBC,Urine 7 /hpf (0-5); Specific Gravity,Urine 1.022 (1.001-1.035); Squamous Epithelial Cell,Urine 10 /hpf (0-4); Urobilinogen,Urine <2.0 mg/dL (<2.0); WBC,Urine 5 /hpf (0-5)
[2018-05-27 18:09] LABS: ALT 44 U/L (9-52); AST 33 U/L (14-36); Albumin 4.6 g/dL (3.5-5.0); Alkaline Phosphatase 86 U/L (38-126); Anion Gap 10 mmol/L; Blood Urea Nitrogen 11 mg/dL (7-17); Calcium 9.2 mg/dL (8.4-10.2); Carbon Dioxide 23 mmol/L (22-30); Chloride 105 mmol/L (98-107); Glucose 79 mg/dL (74-99); Potassium 3.9 mmol/L (3.5-5.1); Sodium 138 mmol/L (137-145); Total Bilirubin 0.5 mg/dL (0.2-1.3); Total Protein 7.8 g/dL (6.3-8.2)
[2018-05-27 18:11] LABS: INR 0.9 (<1.2); Partial Thromboplastin Time 25.5 sec (22.0-30.0); Prothrombin Time 9.9 sec (9.0-12.0)
[2018-05-27 19:10] LABS: HCG,Quantitative Serum 20279.3 mIU/mL
--- NOTE | 2018-05-27 19:33 | US ---
EXAMINATION TYPE: Transabdominal DATE OF EXAM: 09/13/17 COMPARISON: NONE CLINICAL HISTORY: pain. EXAM PERFORMED: Transvaginal (TV) and Transabdominal (TA) EXAM MEASUREMENTS: GESTATIONAL AGE / DATING Physician Established: Not yet established Dates by LMP: (10 weeks/4 days) EDC: 12/19/2018 Dates by First Scan: No previous this is first scan Dates by Current Scan for: No IUP seen at this time dates based on MSD (5 weeks/2 days) EDC: 01/25/2019 MATERNAL ANATOMY Uterus: 8.4 x 4.5 x 5.7 cm; anteverted, likely nabothian cysts seen at cervix Right Ovary: 2.9 x 2.1 x 2.0 cm; appears wnl Left Ovary: 3.0 x 2.1 x 1.7 cm; limited visualization due to overlying bowel gas parts visualized chidi ear wnl Post CDS / Adnexa: Appears wnl Presence of free fluid: No Presence of corpus luteal cyst: No Presence of subchorionic bleed: No GESTATION / SURVEY MSD: 1.2 cm (5 weeks/2 days) Yolk Sac (normal less than 6mm): No yolk sac seen at this time IUP: No IUP seen at this time Date of LMP: 03/14/2018 Beta HcG (if available): 15605.3 IMPRESSION: Small intrauterine gestational sac corresponds to 5 weeks 2 days gestation. Follow-up exam is recomme nded in 14 days to confirm a living fetus.
[2018-05-27 20:40] VITALS: BP 103/81; PULSE 83; TEMP 98
== END 2018-05-27 20:44 | disposition home or self-care (01) ==
LOC: EC 16:45
DX: O20.0 Threatened abortion (principal); O99.89 Other specified diseases and conditions complicating pregnancy, childbirth and the puerperium; M54.5 Low back pain; Z3A.10 10 weeks gestation of pregnancy; Z87.891 Personal history of nicotine dependence
CPT/HCPCS: 36415; 76801; 76817; 80053; 81001; 84702; 85025; 85610; 85730; 86900; 86901; 96360; 96361; 99284

== ENCOUNTER → 2018-06-07 | Outpatient (CLI) | payer OTHER ==
--- NOTE | 2018-06-07 12:17 | US ---
"EXAMINATION TYPE: Transabdominal DATE OF EXAM: 09/13/17 COMPARISON: US 11 days earlier. CLINICAL HISTORY: Z36 followup to abnormal in the ER; EXAM PERFORMED: Transvaginal (TV) to better see gestational sac and contents, and Transabdominal (TA ) EXAM MEASUREMENTS: GESTATIONAL AGE / DATING Physician Established: Not yet established ays) Dates by LMP: (12 weeks/1 day) EDC: 12/19/2018 Dates by First Scan: (6 weeks/6 days) EDC: 01/25/2019 Dates by Current Scan for: (6 weeks/0 days) EDC: 01/31/2019 MATERNAL ANATOMY Uterus: 10.5 x 5.4 x 3.8cm Right Ovary: 2.9 x 2.3 x 2.1cm Left Ovary: not seen TA or TV US Post CDS / Adnexa: wnl Presence of free fluid: no Presence of corpus luteal cyst: not identified Presence of subchorionic bleed: no Urinary Bladder: incidental finding of debris in bladder both on TA and TV US and post void bladder v olume is abnormal at 443.5ml. GESTATION / SURVEY CRL: no pole is seen MSD: 10.7 (6 weeks/0 days) Yolk Sac (normal less than 6mm): not seen Date of LMP: 03/14/2018 Beta HcG (if available): NA Heterogeneous anteverted uterus redemonstrated. A few nabothian cysts of cervix are identified. Endom etrium does not appear significantly thickened. There is oval anechoic area measuring 1.6 x 1.6 x 1.8 cm could reflect gestational sac. No yolk sac or pole however identified. No free fluid is see n in pelvic cul-de-sac. Unable to visualize left ovary on today's study. No suspicious adnexal masses are present. Incidental bladder shows internal speckles or is not completely anechoic and after voiding significant amount o f residual urine is present, calculated volume is almost 500 cc. IMPRESSION: Abnormal study, findings favor spontaneous , too early to visualize intrauterine st ill is not entirely excluded given possible gestational sac has increased in size from prior. Correla te clinically and with today's beta-hCG value to help determine need for short-term follow-up. Possib le underlying cystitis, correlate clinically. A Yellow level critical message alert has been initiated for Wes Soriano MD via the Tomorrow 3 60 | Critical Results System on 06/07/2018 12:15 PM. This message alert has been sent to Wes salas MD via the preferences provided by the clinician for the receipt of Radiology Critical Findings. Message ID [id number]."
== END | disposition home or self-care (01) ==
LOC: RADUSWWP 11:11
PROVIDERS: ATTEND Obstetrics & Gynecology
DX: Z36.9 Encounter for antenatal screening, unspecified (principal)
CPT/HCPCS: 76801; 76817

== ENCOUNTER → 2018-06-20 | Outpatient (CLI) | payer OTHER ==
--- NOTE | 2018-06-20 11:55 | US ---
EXAMINATION TYPE: Ultrasound OB <= 14 weeks transvaginal DATE OF EXAM: 06/20/2018 COMPARISON: 06/07/2018 CLINICAL HISTORY: 27-year-old female O46.91Spotting first Trimester,. follow previous ultrasound. Pa tient is not currently spotting. EXAM PERFORMED: Transvaginal (TV) and Transabdominal (TA) FINDINGS: EXAM MEASUREMENTS: GESTATIONAL AGE / DATING Dates by LMP: (14 weeks/0 days) EDC: 12/19/2018 Dates by Current Scan for: (6 weeks/4 days) EDC: 02/09/2018 Only 4 days more growth of the gestational sac as compared to 06/07/2018. MATERNAL ANATOMY Uterus: 10.3 x 5.2 x 4.9 cm Right Ovary: 2.9 x 2.0 x 1.9 cm Left Ovary: 2.2 x 1.5 x 1.4 cm Post CDS / Adnexa: no free fluid Presence of free fluid: no Presence of corpus luteal cyst: right ovarian lesion - 1.1 x 1.2 x 1.0 cm There is small amount of fluid along the endocervical canal. GESTATION / SURVEY CRL: No CRL visualized MSD: 2.0 cm (6 weeks/4 days) Yolk Sac (normal less than 6mm): No yolk sac visualized IUP: No IUP seen at this time Date of LMP: 03/14/2018 Beta HcG (if available): Not available at this time Bread Racker notes: Probable GS only seen with no internal visual echoes seen. No CRL or YS visualize d. Fluid seen in cervical canal. IMPRESSION: 1. Probable gestational sac redemonstrated. Gestational age by MSD is 6 weeks 4 days, an increase of only 4 days as compared to 06/07/2018. In addition, at this size, a yolk sac and pole should be present. Neither are seen. Small amount of fluid also now seen along the endocervical canal. 2. Recommend correlation with serial beta-hCG for imaging findings which suggest failed /bli ghted ovum.
== END | disposition home or self-care (01) ==
LOC: RADUSWWP 11:09
PROVIDERS: ATTEND Obstetrics & Gynecology
DX: O46.91 Antepartum hemorrhage, unspecified, first trimester (principal); Z3A.01 Less than 8 weeks gestation of pregnancy
CPT/HCPCS: 76801; 76817; 84702

== ENCOUNTER → 2018-06-23 | Outpatient (CLI) | payer OTHER ==
[2018-06-23 10:32] LABS: Basophils % (A) 0 %; Eosinophils # (A) 0.1 k/uL (0-0.7); Eosinophils % (A) 1 %; HCT 41.1 % (34.0-46.0); HGB 13.8 gm/dL (11.4-16.0); Lymphocytes # (A) 0.5 k/uL (1.0-4.8); Lymphocytes % (A) 8 %; MCHC 33.6 g/dL (31.0-37.0); MCV 92.3 fL (80.0-100.0); Mean Platelet Volume 6.8; Monocytes # (A) 0.4 k/uL (0-1.0); Monocytes % (A) 6 %; Neutrophils # (A) 5.3 k/uL (1.3-7.7); Neutrophils % (A) 84 %; Platelet Count 266 k/uL (150-450); RBC 4.45 m/uL (3.80-5.40); RDW 12.8 % (11.5-15.5); WBC 6.3 k/uL (3.8-10.6)
== END | disposition home or self-care (01) ==
LOC: LABPAT 09:53
PROVIDERS: ATTEND Obstetrics & Gynecology
DX: Z01.812 Encounter for preprocedural laboratory examination (principal)
CPT/HCPCS: 85025

== ENCOUNTER 2018-06-27 05:38 | Day surgery (SDC) | payer OTHER ==
--- NOTE | 2018-06-26 07:26 | P.HPOB ---
History of Present Illness H&P Date: 06/26/18 Chief Complaint: Missed requesting D&C This patient is a pleasant 27-year-old 2 para 0 female estimated gestational age approximately 5-6 weeks who's had a persistent empty uterine sac and evaluation consistent with a missed . Patient is now requesting suction D&C for treatment. Patient's history is such that she went to the emergency department back in the middle of May with complaints of vaginal bleeding. Patient that time had a 5-6 week intrauterine sac and a beta hCG of 20,000. Patient was watched expectantly with serial ultrasounds and beta hCGs and this is shown no progression. Patient this time is requesting suction D&C for treatment. Review of Systems Genitourinary: Reports as per HPI, Reports abnormal vaginal bleeding, Reports Menstruation: Reports as per HPI Past Medical History Past Medical History: Asthma Additional Past Medical History / Comment(s): kidney stones History of Any Multi-Drug Resistant Organisms: None Reported Past Surgical History: Cholecystectomy Additional Past Surgical History / Comment(s): Extracorporal shock wave lithotripsy twice Past Anesthesia/Blood Transfusion Reactions: No Reported Reaction Past Psychological History: No Psychological Hx Reported Smoking Status: Former smoker Past Alcohol Use History: None Reported Past Drug Use History: Marijuana - Past Family History Father Family Medical History: Pulmonary Embolus Medications and Allergies Home Medications Medication Instructions Recorded Confirmed Type No Known Home Medications 12/29/17 05/27/18 History Allergies Allergy/AdvReac Type Severity Reaction Status Date / Time No Known Allergies Allergy Verified 05/27/18 16:50 Exam - OBG Physical Exam Abdomen: bowel sounds normal, no diffuse tenderness, no bruit present, no guarding noted, no hepatomegaly, no splenomegaly, no mass Vulva: both: normal Vagina: normal moisture, no discharge Cervix: no lesion, no discharge Uterus: normal size, enlarged, normal contour Results Ultrasound shows a persistent 6 week size intrauterine sac but has not changed significantly over the last 4 weeks. Beta hCG is over 20,000. Blood type is a positive Assessment and Plan Assessment: This is a pleasant 27-year-old 2 para 0 female approximately 6 weeks' gestation with known missed requesting suction D&C for treatment. Patient and I have discussed the surgery and risks including risks of infection , bleeding, possible uterine perforation. All the patient's questions are answered and a written consent is obtained. (1) Missed Status: Chronic Code(s): O02.1 - MISSED SNOMED Code(s): 79648191
[2018-06-26 08:34] VITALS: BMI 30.1
[~2018-06-27 05:38] MED LIST changes: +DEXAMETHASONE SOD PHOSPHATE 10 MG/ML 1 ML VIAL IV ONE; +HYDROmorphone 0.5 MG/0.5 ML SYRINGE IVP PRN; +LACTATED RINGERS 1,000 ML IV SCH; +LIDOCAINE 1% 20 ML VIAL (10MG/ML) FOR IV START INTRADERMA PRN; +MIDAZOLAM (PF) 2 MG/2 ML VIAL IV PRN; +ONDANSETRON 4 MG/2 ML VIAL IVP ONE; +Pre Op ABX Message 1 EACH MISC MISCELLANE ONE; +SCOPOLAMINE 1.5MG/72HR PATCH TRANSDERM ONE; -SODIUM CHLORIDE 0.9% 1,000 ML IV ONE
[2018-06-27] MEDS ORDERED: fentaNYL (PF) 50 MCG/ML 2 ML AMP ONE (06:54)
[2018-06-27] MEDS ORDERED: PROPOFOL 10 MG/ML 20 ML VIAL IV ONE (06:54)
[2018-06-27] MEDS ORDERED: LIDOCAINE 1% INJ 10MG/ML (20 ML MDV) ONE (06:54)
[2018-06-27] MEDS ORDERED: MIDAZOLAM 2 MG/2 ML VIAL ONE (06:54)
[2018-06-27] MEDS ORDERED: KETOROLAC 30 MG/ML 1 ML VIAL ONE (06:54)
--- NOTE | 2018-06-27 07:27 | P.OP ---
Date of Procedure: 06/27/18 Preoperative Diagnosis: Missed 6 weeks Postoperative Diagnosis: Same Procedure(s) Performed: Suction D&C Anesthesia: MAC Surgeon: Wes Soriano Estimated Blood Loss (ml): 50 IV fluids (ml): 50 Pathology: other (Uterine contents) Condition: stable Disposition: PACU Indications for Procedure: Please see dictated H&P for intimate details of this patient's admission. Brief summary this is a 27-year-old 2 para 0 female estimated gestational age based on ultrasound 6-1/2 weeks who's had a persistent empty sac for the last 4 weeks. Beta hCGs remained at around 20,000 and patient has stopped bleeding. She now requests suction D&C for treatment. She 11 and mother have discussed the surgery and risks including risks of infection, bleeding, possible uterine perforation. All the patient's questions are answered written consent is obtained. Operative Findings: This patient had uterine contents consistent with products of conception. Description of Procedure: This patient is taken to the operating room where she is laid in the supine position. She subsequently undergoes general mask anesthesia without incident. An adequate level of anesthesia was placed in dorsal lithotomy position. She has a vaginal perineal prep and drape. Examination under anesthesia shows a mid position uterus approximately 6-7 weeks size. The bladder is drained for 50 mL of clear urine. Weighted speculum placed in the posterior vagina. I grabbed the anterior lip of the cervix with an Allis clamp. Cervix is then gently dilated to allow a 8 curved suction curette easily into the uterine cavity. Multiple passes are made for a generous amount of tissue. Bleeding subsides almost immediately. I then take a small sharp curet and curettage of all 4 quadrants gently and no further tissue was remaining. Final pass of the suction curet is done and again no further tissue was remaining. Excellent hemostasis is noted. The Allis clamp and weighted speculum removed. Patient is awakened from anesthesia and taken recovery room in satisfactory condition.
[2018-06-27 07:38] VITALS: RESP 16; TEMP 96.8
[2018-06-27 08:40] VITALS: BP 112/78; PULSE 74
== END 2018-06-27 09:20 | disposition home or self-care (01) ==
LOC: OR 05:38
PROVIDERS: ATTEND Obstetrics & Gynecology
DX: O02.1 Missed abortion (principal); J45.909 Unspecified asthma, uncomplicated; Z87.442 Personal history of urinary calculi; Z87.891 Personal history of nicotine dependence
CPT/HCPCS: 86900; 86901; 88305; 86850; 59820; J2250; J1100; J2405; J2001; J3010; J1885; J2704

== ENCOUNTER → 2018-11-09 | Outpatient (CLI) | payer OTHER ==
--- NOTE | 2018-11-09 15:36 | US ---
EXAMINATION TYPE: Transabdominal DATE OF EXAM: 11/09/2018 3:16 PM COMPARISON: NONE CLINICAL HISTORY: Z36 confirm dates. Dates, hx of miscarriage EXAM PERFORMED: Transabdominal (TA) EXAM MEASUREMENTS: GESTATIONAL AGE / DATING Dates by LMP: (11 weeks/2 days) EDC: 05/29/2019 Dates by Current Scan for: (11 weeks/6 days) EDC: 05/25/2019 MATERNAL ANATOMY Uterus: 12.5 x 7.1 x 6.0 cm Right Ovary: 2.3 x 1.8 x 1.6 cm Left Ovary: 3.0 x 2.0 x 1.9 cm Post CDS / Adnexa: wnl Presence of free fluid: no free fluid Presence of corpus luteal cyst: no Presence of subchorionic bleed: Hypoechoic lesion seen in LEN adjacent to GS= 1.6 x 1.5 x 0.5 cm GESTATION / SURVEY CRL: 5..1 cm (11 weeks/6 days) MSD: seen, not measured Yolk Sac (normal less than 6mm): not visualized Heart Rate: 164 bpm Rhythm: Normal IUP: Viable IUP Nuchal Translucency 10-14wks (normal less than 3mm): 1.5 mm Date of LMP: 08/22/2018, A2 Beta HcG (if available): Not available at this time Single live IUP measuring 11 weeks 6 days. IMPRESSION: Single intrauterine gestation estimated at 11 weeks 6 days gestation based on crown-rump length. Card iac activity measures 164 bpm. 2. Small subchorionic hemorrhage adjacent to the gestational sac.
[2018-11-09 16:03] LABS: HCT 37.8 % (34.0-46.0); HGB 12.5 gm/dL (11.4-16.0); MCHC 33.1 g/dL (31.0-37.0); MCV 87.6 fL (80.0-100.0); Mean Platelet Volume 7.3; Platelet Count 317 k/uL (150-450); RBC 4.31 m/uL (3.80-5.40); RDW 13.1 % (11.5-15.5); WBC 9.3 k/uL (3.8-10.6)
[2018-11-09 16:13] LABS: Glucose 112 mg/dL (74-99)
== END | disposition home or self-care (01) ==
LOC: RADUSWWP 14:54
PROVIDERS: ATTEND Obstetrics & Gynecology
DX: O20.9 Hemorrhage in early pregnancy, unspecified (principal); Z3A.11 11 weeks gestation of pregnancy
CPT/HCPCS: 76801; 76813; 82565; 82947; 85027; 86762; 86780; 86850; 86900; 86901; 87340